=== PATIENT | female | born 1965 | race Caucasian/White ===

== ENCOUNTER 2017-02-01 22:22 | Emergency (ER) | payer SELFPAY ==
[~2017-02-01] VITALS: Ht 144.8 cm; Wt 61.5 kg
[2017-02-01 22:34] VITALS: Ht 144.8 cm; Wt 61.5 kg
[2017-02-01 23:47] LABS: ADD SCAN DIFF NO
[2017-02-01 23:50] LABS: BASOPHIL # 0.1 10^3/ul (0.0-0.1); BASOPHILS % 0.6 % (0.0-2.0); EOSINOPHILS # 0.3 10^3/ul (0.0-0.5); EOSINOPHILS % 2.7 % (0.0-7.0); HEMATOCRIT 39.7 % (37.0-47.0); LYMPHOCYTES # 2.8 10^3/ul (0.8-2.9); MEAN CORPUSCULAR HEMOGLOBIN 29.3 pg (29.0-33.0); MEAN CORPUSCULAR HGB CONC 35.3 g/dl (32.0-37.0); MEAN CORPUSCULAR VOLUME 83.1 fl (82.0-101.0); MONOCYTE # 0.7 10^3/ul (0.3-0.9); MONOCYTES % 6.7 % (0.0-11.0); NEUTROPHIL # 6.5 10^3/ul (1.6-7.5); NEUTROPHILS % 62.7 % (39.0-77.0); PLATELET COUNT 325 10^3/UL (140-415); RED BLOOD COUNT 4.78 10^6/ul (4.20-5.40); RED CELL DISTRIBUTION WIDTH 11.6 % (11.5-14.5); WHITE BLOOD COUNT 10.3 10^3/ul (4.8-10.8)
[2017-02-02 00:07] LABS: ALBUMIN 4.7 g/dl (3.3-4.9); POTASSIUM 3.8 mmol/L (3.5-5.1)
[2017-02-02 00:09] LABS: CREATININE 0.74 mg/dl (0.44-1.00)
[2017-02-02 00:10] LABS: ALBUMIN/GLOBULIN RATIO 1.3; BILIRUBIN,INDIRECT 0.2 mg/dl (0-1.1); BILIRUBIN,TOTAL 0.2 mg/dl (0.2-1.3); CALCIUM 9.5 mg/dl (8.4-10.2); TOTAL PROTEIN 8.3 g/dl (6.1-8.1)
[2017-02-02] MEDS ORDERED: TRAM50TA2 PO (00:32)
[2017-02-02] MEDS ORDERED: ONDA4TAB14 PO (00:32)
--- NOTE | 2017-02-02 00:32 | ERD ---
ER Documentation Chief Complaint Date/Time DATE: 02/02/17 TIME: 00:31 Chief Complaint RUQ AP since last night HPI This is a 51-year-old female right upper quadrant pain since last night. Pain is mild to moderate intensity, colicky in nature with no exacerbating or alleviating factors. Denies any other current complaints. Mild nausea. No vomiting. ROS All systems reviewed and are negative except as per history of present illness. Allergies Allergies: Coded Allergies: No Known Allergy (Unverified , 02/01/17) PMhx/Soc History of Surgery: Yes (C SECTION X2) Anesthesia Reaction: No Hx Neurological Disorder: No Hx Respiratory Disorders: No Hx Cardiac Disorders: Yes (HTN) Hx Psychiatric Problems: No Hx Miscellaneous Medical Probl: No Hx Alcohol Use: No Hx Substance Use: No Hx Tobacco Use: No Smoking Status: Never smoker Physical Exam Vitals Vital Signs Date Time Temp Pulse Resp B/P Pulse Ox O2 Delivery O2 Flow Rate FiO2 02/01/17 22:34 98.8 108 18 124/90 96 Physical Exam Const: [] Head: Atraumatic Eyes: Normal Conjunctiva ENT: Normal External Ears, Nose and Mouth. Neck: Full range of motion..~ No meningismus. Resp: Clear to auscultation bilaterally Cardio: Regular rate and rhythm, no murmurs Abd: Soft, non tender, non distended. Normal bowel sounds Skin: No petechiae or rashes Back: No midline or flank tenderness Ext: No cyanosis, or edema Neur: Awake and alert Psych: Normal Mood and Affect Result Diagram: 02/01/17 2340 02/01/17 2340 Results 24 hrs Laboratory Tests Test 02/01/17 23:40 Alanine Aminotransferase (ALT/SGPT) 97IU/L Albumin 4.7g/dl Albumin/Globulin Ratio 1.30 Alkaline Phosphatase 94IU/L Anion Gap 18 Aspartate Amino Transf (AST/SGOT) 69IU/L Basophils # 0.110^3/ul Basophils % 0.6% Blood Urea Nitrogen 10mg/dl Calcium Level 9.5mg/dl Carbon Dioxide Level 27mmol/L Chloride Level 99mmol/L Creatinine 0.74mg/dl Direct Bilirubin 0.00mg/dl Eosinophils # 0.310^3/ul Eosinophils % 2.7% Globulin 3.60g/dl Glucose Level 102mg/dl Hematocrit 39.7% Hemoglobin 14.0g/dl Indirect Bilirubin 0.2mg/dl Lipase 112U/L Lymphocytes # 2.810^3/ul Lymphocytes % 27.0% Mean Corpuscular Hemoglobin 29.3pg Mean Corpuscular Hemoglobin Concent 35.3g/dl Mean Corpuscular Volume 83.1fl Mean Platelet Volume 9.0fl Monocytes # 0.710^3/ul Monocytes % 6.7% Neutrophils # 6.510^3/ul Neutrophils % 62.7% Nucleated Red Blood Cells # 0.010^3/ul Nucleated Red Blood Cells % 0.0/100WBC Platelet Count 16492^3/UL Potassium Level 3.8mmol/L Red Blood Count 4.7810^6/ul Red Cell Distribution Width 11.6% Sodium Level 140mmol/L Total Bilirubin 0.2mg/dl Total Protein 8.3g/dl White Blood Count 10.310^3/ul Procedures/MDM Medical decision-making: This is a 51-year-old female biliary colic. At this point is clinically stable for outpatient management. She will be discharged home. Follow-up with PCP. Departure Diagnosis: Primary Impression: Abdominal pain Abdominal location: right upper quadrant Qualified Code: R10.11 - Right upper quadrant abdominal pain Additional Impression: Biliary colic Condition: Stable MARYANA DALY Feb 02, 2017 00:31
--- NOTE | 2017-02-02 00:45 | RADRPT ---
PROCEDURE: US Abdomen (right upper quadrant). CLINICAL INDICATION: Abdominal pain TECHNIQUE: Multiple real-time longitudinal and transverse images of the right upper quadrant of th e abdomen were acquired utilizing a curved array transducer. Images were reviewed on a high-resoluti on PACS workstation. COMPARISON: None FINDINGS: The liver is normal in size and echogenicity without focal mass or intrahepatic biliary dilatation. There is normal hepatopedal flow within the main portal vein. There is cholelithiasis with 2.6 cm gallstone in the gallbladder neck region. No gallbladder wall thickening or pericholecystic fluid is seen. No intra or extrahepatic biliary dilatation is seen. The common bile duct measures 4.1 mm i n maximal dimension. The visualized portions of the pancreas are unremarkable. No free fluid is id entified. The right kidney measures 9.6 cm in length. There is normal echogenicity within the right kidney. There is no perinephric fluid collection. No hydronephrosis, mass, or calculus is seen. IMPRESSION: Cholelithiasis with 2.6 cm gallstone in gallbladder neck region. Please see above. RPTAT: HJES .David Angel MD, Date Time Electronically viewed and signed by .David Angel MD, on 02/02/2017 00:44 .S/
[2017-02-02] MEDS ORDERED: morphine 4 MG/ML VIAL IV STA (01:02)
[2017-02-02] MEDS ORDERED: ONDANSETRON 4 MG INJ IV STA (01:02)
[2017-02-02 01:40] VITALS: BP 133/99; PULSE 70; RESP 18
== END 2017-02-02 02:19 | disposition home or self-care (01) ==
LOC: E/R 22:22
DX: R10.11 Right upper quadrant pain (principal); K80.50 Calculus of bile duct without cholangitis or cholecystitis without obstruction; I10 Essential (primary) hypertension; R11.0 Nausea
CPT/HCPCS: 36415; 76705; 80053; 83690; 85025; 96374; 96375; 99285; J2270; J2405